=== PATIENT | female | born 1980 | race Two or more races ===

== ENCOUNTER 2016-12-23 07:59 | Emergency (ER) | payer MEDICAID ==
[~2016-12-23] VITALS: Ht 170.2 cm; Wt 74.8 kg
[2016-12-23 09:12] VITALS: BP 130/73
[2016-12-23] MEDS ORDERED: cefTRIAXone SOD 1,000 MG VL IM ONE (09:30)
[2016-12-23] MEDS ORDERED: methylPREDNISolone SOD SUCC 125 MG/2 ML VL IM ONE (09:30)
[2016-12-23] MEDS ORDERED: ALBUTEROL SULF 2.5 MG/0.5ML(0.5%) NEB SOLN NEB ONE (09:30)
[2016-12-23] MEDS ORDERED: IPRATROPIUM BROM 0.5 MG/2.5ML INH SOL NEB ONE (09:30)
== END 2016-12-23 09:47 | disposition home or self-care (01) ==
LOC: ER 07:59
DX: J20.9 Acute bronchitis, unspecified (principal)
CPT/HCPCS: 81025; 94640; 96372; 99284; J0696; J2930

== ENCOUNTER 2017-10-20 16:00 | Emergency (ER) | payer MEDICAID ==
[~2017-10-20] VITALS: Ht 170.2 cm; Wt 72.6 kg
[2017-10-20] MEDS ORDERED: IBUPROFEN 600 MG TAB PO ONE (16:10)
[2017-10-20 16:37] VITALS: BP 115/77
[2017-10-20] MEDS ORDERED: KETOROLAC TROMETH 60MG/2ML VIAL IM ONE (16:45)
== END 2017-10-20 17:25 | disposition home or self-care (01) ==
LOC: ER 16:00
DX: S93.401A Sprain of unspecified ligament of right ankle, initial encounter (principal); W18.39XA Other fall on same level, initial encounter; Y93.89 Activity, other specified; Y92.89 Other specified places as the place of occurrence of the external cause; Y99.8 Other external cause status
CPT/HCPCS: 73610; 96372; 99284; J1885

== ENCOUNTER 2018-09-24 21:02 | Emergency (ER) | payer MEDICAID ==
[~2018-09-24] VITALS: Ht 170.2 cm; Wt 72.6 kg
[2018-09-24 21:15] VITALS: BP 124/98
[2018-09-25] MEDS ORDERED: MEPERIDINE HCL (50 MG/ML) 1 ML VIAL IV ONE (00:30)
== END 2018-09-25 01:30 | disposition home or self-care (01) ==
LOC: ER 21:05
DX: S82.891A Other fracture of right lower leg, initial encounter for closed fracture (principal); X50.1XXA Overexertion from prolonged static or awkward postures, initial encounter; Y93.89 Activity, other specified; Y92.89 Other specified places as the place of occurrence of the external cause; Y99.8 Other external cause status
CPT/HCPCS: 29515; 73610; 96374; 99284; J2175

== ENCOUNTER 2020-03-15 17:34 | Emergency (ER) | payer MEDICAID ==
[~2020-03-15] VITALS: Ht 167.6 cm; Wt 76.2 kg
[2020-03-15 18:22] LABS: Basophils # (auto) 0.1 10 ^3/uL (0-0.2); Basophils % (auto) 0.8 % (0.0-2.0); Eosinophils # (auto) 0.1 10 ^3/uL (0-0.8); Eosinophils % (auto) 1.4 % (0.0-7.0); Hematocrit 44.6 % (36.0-46.0); Hemoglobin 15.4 g/dL (12.2-16.2); Lymphocytes # (auto) 3.1 10 ^3/uL (0.4-5.4); Lymphocytes % (auto) 41.3 % (10.0-50.0); Mean Corpuscular Hemoglobin 32.7 pg (28.0-32.0); Mean Corpuscular Hgb Conc. 34.6 g/dL (32.0-36.0); Mean Corpuscular Volume 94.4 fL (80.0-100.0); Monocytes # (auto) 0.5 10 ^3/uL (0-1.3); Monocytes % (auto) 6.4 % (0.0-12.0); Neutrophils # (auto) 3.8 10 ^3/uL (1.6-8.6); Neutrophils % (auto) 50.1 % (37.0-80.0); Platelet Count (auto) 314 10^3/uL (140-450); Red Blood Cells 4.72 10^6/uL (4.0-5.20); Red Cell Distribution Width 13.4 % (11.8-14.3); White Blood Cell 7.5 10^3/uL (4.4-10.8)
[2020-03-15 18:28] LABS: Urine Bacteria NONE SEEN /hpf (None Seen); Urine Blood 1+ /uL (Negative); Urine Mucus FEW (None Seen); Urine Specific Gravity 1.019 (1.001-1.035); Urine WBC 2 /hpf (0 - 5)
[2020-03-15] MEDS ORDERED: ONDANSETRON HCL 4 MG/2 ML VIAL IV ONE (18:30)
[2020-03-15] MEDS ORDERED: SODIUM CHLORIDE 0.9% 1,000 ML IV ONE (18:30)
[2020-03-15] MEDS ORDERED: MORPHINE SULFATE 4 MG/ML SYR/VIAL IV ONE (18:30)
[2020-03-15 18:45] LABS: Albumin 3.8 g/dL (3.4-5.0); Calcium 8.4 mg/dL (8.5-10.1); Potassium 3.3 mmol/L (3.5-5.1)
[2020-03-15 18:48] LABS: BUN/Creatinine Ratio 12.9; Bilirubin, Total 0.4 mg/dL (0.2-1.0); Total Protein 7.9 g/dL (6.4-8.2)
[2020-03-15 19:09] LABS: Amphetamine Screen, Urine POSITIVE (NEGATIVE); Barbiturate Scree,Urine NEGATIVE (NEGATIVE); Benzodiazephine Screen, Urine NEGATIVE (NEGATIVE); Cannabinoid Screen, Urine NEGATIVE (NEGATIVE); Cocaine Screen, Urine NEGATIVE (NEGATIVE); Opiate Scree,Urine NEGATIVE (NEGATIVE); Phencyclidine Screen, Urine NEGATIVE (NEGATIVE)
[2020-03-15 19:30] VITALS: BP 126/86
[2020-03-15] MEDS ORDERED: THIAMINE INJ 100 MG in SODIUM CHLORIDE 0.9% 1,000 ML IV ONE (20:30)
[2020-03-16] MEDS ORDERED: FOLIC ACID 1 MG, MULTIPLE VITAMIN 10 ML, MAGNESIUM SULF SDV 50% 8 MEQ, THIAMINE INJ 100... INJ SCH ×5 (12:00)
== END 2020-03-15 21:10 | disposition home or self-care (01) ==
LOC: ER 17:34
DX: N39.0 Urinary tract infection, site not specified (principal); F10.229 Alcohol dependence with intoxication, unspecified; K70.30 Alcoholic cirrhosis of liver without ascites; I10 Essential (primary) hypertension; Z90.49 Acquired absence of other specified parts of digestive tract; Y90.6 Blood alcohol level of 120-199 mg/100 ml
CPT/HCPCS: 36415; 74176; 80053; 80307; 80320; 81001; 83605; 84702; 85025; 96361; 96374; 96375; 99284; J2270; J2405; J3411; J7030

== ENCOUNTER 2020-11-24 11:17 | Emergency (ER) | payer MEDICAID ==
[~2020-11-24] VITALS: Ht 170.2 cm; Wt 73.5 kg
[2020-11-24 11:40] VITALS: BP 126/62
== END 2020-11-24 14:07 | disposition home or self-care (01) ==
LOC: ER 11:17
DX: J20.9 Acute bronchitis, unspecified (principal); Z20.828 Contact with and (suspected) exposure to other viral communicable diseases; Z90.49 Acquired absence of other specified parts of digestive tract
CPT/HCPCS: 36415; 71045; 87426

== ENCOUNTER 2021-05-31 19:17 | Inpatient (IN) | payer MEDICAID ==
[~2021-05-31] VITALS: Ht 162.6 cm; Wt 84.2 kg
[2021-05-31 20:33] LABS: Basophils # (auto) 0 10 ^3/uL (0-0.2); Basophils % (auto) 0.5 % (0.0-2.0); Eosinophils # (auto) 0.1 10 ^3/uL (0-0.8); Eosinophils % (auto) 0.9 % (0.0-7.0); Hemoglobin 15.4 g/dL (12.2-16.2); Lymphocytes # (auto) 2.8 10 ^3/uL (0.4-5.4); Lymphocytes % (auto) 42.6 % (10.0-50.0); Mean Corpuscular Hemoglobin 33.9 pg (28.0-32.0); Mean Corpuscular Hgb Conc. 35.9 g/dL (32.0-36.0); Mean Corpuscular Volume 94.6 fL (80.0-100.0); Monocytes # (auto) 0.5 10 ^3/uL (0-1.3); Monocytes % (auto) 7.1 % (0.0-12.0); Neutrophils # (auto) 3.2 10 ^3/uL (1.6-8.6); Neutrophils % (auto) 48.9 % (37.0-80.0); Nucleated Red Blood Cells % 0.1 %; Red Blood Cells 4.55 10^6/uL (4.0-5.20); Red Cell Distribution Width 12.6 % (11.8-14.3); White Blood Cell 6.5 10^3/uL (4.4-10.8)
[2021-05-31 20:52] LABS: Alanine Aminotransferase 90 U/L (13-56); Albumin 3.7 g/dL (3.4-5.0); Anion Gap 12 (5-15); Aspartate Aminotransferase 50 U/L (15-37); BUN/Creatinine Ratio 14.3; Blood Urea Nitrogen 10 mg/dL (7-18); Calcium 8.4 mg/dL (8.5-10.1); Carbon Dioxide 22 mmol/L (21-32); Chloride 108 mmol/L (98-107); GFR African American 119 mL/min; GFR Non-African American 99 mL/min; Glucose 96 mg/dL (74-106); Magnesium 2.1 mg/dL (1.6-2.6); Sodium 142 mmol/L (136-145)
[2021-05-31 20:55] LABS: Lactic Acid w/Reflex 2.6 mmol/L (0.4-2.0)
[2021-05-31 20:57] LABS: Alkaline Phosphatase 73 U/L (45-117); Bilirubin, Total 0.4 mg/dL (0.2-1.0); Total Protein 7.7 g/dL (6.4-8.2)
[2021-05-31 20:59] LABS: INR 0.99 (0.9-1.15); Partial Thromboplastin Time 25.4 sec (23.0-31.2)
[2021-05-31 21:04] LABS: Potassium 2.6 mmol/L (3.5-5.1)
[2021-05-31] MEDS ORDERED: POTASSIUM CHL 20 Meq TABLET PO ONE (21:30)
[2021-05-31] MEDS ORDERED: SODIUM CHLORIDE 0.9% 1,000 ML IV ONE (21:30)
[2021-05-31] MEDS: POTASSIUM CHL 20MEQ/100ML 100 ML IV SCH ×2 (21:55→23:55)
[2021-06-01 06:13] LABS: Urine Bacteria MANY /hpf (None Seen); Urine Blood Negative /uL (Negative); Urine Hyaline Cast FEW /lpf (0 - 2); Urine Mucus MANY (None Seen); Urine Specific Gravity 1.026 (1.001-1.035); Urine WBC 54 /hpf (0 - 5)
[2021-06-01 06:36] LABS: Amphetamine Screen, Urine POSITIVE (NEGATIVE); Barbiturate Scree,Urine NEGATIVE (NEGATIVE); Benzodiazephine Screen, Urine NEGATIVE (NEGATIVE); Cannabinoid Screen, Urine NEGATIVE (NEGATIVE); Cocaine Screen, Urine NEGATIVE (NEGATIVE); Opiate Scree,Urine NEGATIVE (NEGATIVE); Phencyclidine Screen, Urine NEGATIVE (NEGATIVE)
[2021-06-01] MEDS ORDERED: MORPHINE SULF INJ 2 MG/ML SYRINGE 1ML IV PRN (09:30)
[2021-06-01] MEDS ORDERED: NITROGLYCERIN 0.4 MG SL TAB SL PRN (09:30)
[2021-06-01] MEDS: cefTRIAXone 1GM/50ML D5W 50 ML IV SCH (09:57)
[2021-06-01] MEDS: ALPRAZolam 0.5 MG TAB PO PRN ×2 (09:57→17:55)
[2021-06-01] MEDS ORDERED: IOHEXOL 350 MG/ML 100ML IJ ONE (10:15)
[2021-06-01 10:23] LABS: BUN/Creatinine Ratio 21.4; Calcium 8.1 mg/dL (8.5-10.1); Potassium 3.8 mmol/L (3.5-5.1)
[2021-06-01] MEDS: CARVEDILOL 3.125 MG TAB PO SCH ×2 (11:09→21:07)
[2021-06-01] MEDS: GABAPENTIN 300 MG CAP PO SCH ×2 (11:10→21:07)
[2021-06-01] MEDS ORDERED: LORazepam 2MG/ML-1ML VIAL IV PRN (12:00)
[2021-06-01] MEDS ORDERED: TEMAZEPAM 15 MG CAP PO PRN (12:00)
[2021-06-01] MEDS ORDERED: DOCUSATE SOD 100 MG CAP PO PRN (12:00)
[2021-06-01] MEDS ORDERED: ONDANSETRON HCL 4 MG/2 ML VIAL IV PRN (12:00)
[2021-06-01] MEDS ORDERED: ACETAMINOPHEN 325 MG TAB PO PRN (12:00)
[2021-06-01] MEDS: SODIUM CHLORIDE 0.9% 1,000 ML IV SCH ×2 (12:47→20:20)
[2021-06-01 13:00] VITALS: BP 131/83
[2021-06-01] MEDS: FOLIC ACID 1 MG, MULTIPLE VITAMIN 10 ML, MAGNESIUM SULF SDV 50% 8 MEQ, THIAMINE INJ 100... INJ SCH ×5 (15:24)
[2021-06-01] MEDS: HYDROcodone-ACET 5/325MG TAB PO PRN ×2 (15:25→20:19)
[2021-06-01 17:00] VITALS: BP 127/65
[2021-06-01 20:33] VITALS: BP 121/69
[2021-06-01] MEDS: FAMOTIDINE 20 MG TAB PO SCH (21:08)
[2021-06-02] MEDS: HYDROcodone-ACET 5/325MG TAB PO PRN ×3 (03:12→21:23)
[2021-06-02 04:31] VITALS: BP 108/68
[2021-06-02] MEDS: SODIUM CHLORIDE 0.9% 1,000 ML IV SCH ×3 (04:40→21:23)
[2021-06-02 05:40] LABS: Basophils # (auto) 0 10 ^3/uL (0-0.2); Eosinophils # (auto) 0.1 10 ^3/uL (0-0.8); Hemoglobin 13.3 g/dL (12.2-16.2); Monocytes # (auto) 0.5 10 ^3/uL (0-1.3); Neutrophils # (auto) 3.1 10 ^3/uL (1.6-8.6); Red Cell Distribution Width 12.5 % (11.8-14.3)
[2021-06-02 05:49] LABS: Basophils % (auto) 0.5 % (0.0-2.0); Eosinophils % (auto) 1.9 % (0.0-7.0); Hematocrit 37.1 % (36.0-46.0); Lymphocytes # (auto) 2.8 10 ^3/uL (0.4-5.4); Lymphocytes % (auto) 43.3 % (10.0-50.0); Mean Corpuscular Hemoglobin 34.5 pg (28.0-32.0); Mean Corpuscular Hgb Conc. 35.8 g/dL (32.0-36.0); Mean Corpuscular Volume 96.4 fL (80.0-100.0); Monocytes % (auto) 7.3 % (0.0-12.0); Red Blood Cells 3.85 10^6/uL (4.0-5.20); White Blood Cell 6.5 10^3/uL (4.4-10.8)
[2021-06-02 05:57] LABS: Calcium 7.4 mg/dL (8.5-10.1); Potassium 3.5 mmol/L (3.5-5.1)
[2021-06-02 06:03] LABS: Albumin 2.8 g/dL (3.4-5.0); BUN/Creatinine Ratio 23.3; Bilirubin, Total 0.6 mg/dL (0.2-1.0); Total Protein 5.7 g/dL (6.4-8.2)
[2021-06-02 08:00] VITALS: BP 121/69
[2021-06-02 09:00] VITALS: BP 113/67
[2021-06-02] MEDS: cefTRIAXone 1GM/50ML D5W 50 ML IV SCH (09:13)
[2021-06-02] MEDS: GABAPENTIN 300 MG CAP PO SCH ×2 (09:13→22:28)
[2021-06-02] MEDS: ASPirin 325 MG TAB PO SCH (09:16)
[2021-06-02] MEDS: FAMOTIDINE 20 MG TAB PO SCH ×2 (09:17→22:00)
[2021-06-02] MEDS: CARVEDILOL 3.125 MG TAB PO SCH ×2 (09:17→22:29)
[2021-06-02] MEDS: FOLIC ACID 1 MG, MULTIPLE VITAMIN 10 ML, MAGNESIUM SULF SDV 50% 8 MEQ, THIAMINE INJ 100... INJ SCH ×5 (12:09)
[2021-06-02 13:00] VITALS: BP 111/70
[2021-06-02 17:00] VITALS: BP 153/74
[2021-06-02 22:00] VITALS: BP 130/77
[2021-06-03 04:56] VITALS: BP 119/79
[2021-06-03] MEDS: SODIUM CHLORIDE 0.9% 1,000 ML IV SCH ×3 (06:55→22:20)
[2021-06-03 08:00] VITALS: BP 98/65
[2021-06-03 09:02] VITALS: BP 127/76
[2021-06-03] MEDS: GABAPENTIN 300 MG CAP PO SCH ×2 (09:43→22:34)
[2021-06-03] MEDS: ASPirin 325 MG TAB PO SCH (09:43)
[2021-06-03] MEDS: cefTRIAXone 1GM/50ML D5W 50 ML IV SCH (09:43)
[2021-06-03] MEDS: FAMOTIDINE 20 MG TAB PO SCH ×2 (09:44→22:34)
[2021-06-03] MEDS: CARVEDILOL 3.125 MG TAB PO SCH ×2 (09:44→22:34)
[2021-06-03 13:00] VITALS: BP 121/87
[2021-06-03] MEDS: FOLIC ACID 1 MG, MULTIPLE VITAMIN 10 ML, MAGNESIUM SULF SDV 50% 8 MEQ, THIAMINE INJ 100... INJ SCH ×5 (13:54)
[2021-06-03] MEDS: HYDROcodone-ACET 5/325MG TAB PO PRN (13:56)
[2021-06-03 17:15] VITALS: BP 110/86
[2021-06-03 22:00] VITALS: BP 132/81
[2021-06-03] MEDS: ALPRAZolam 0.5 MG TAB PO PRN (22:49)
[2021-06-04 05:01] VITALS: BP 120/77
[2021-06-04] MEDS: SODIUM CHLORIDE 0.9% 1,000 ML IV SCH (06:40)
[2021-06-04 08:00] VITALS: BP 132/81
[2021-06-04 08:34] VITALS: BP 122/77
[2021-06-04] MEDS: cefTRIAXone 1GM/50ML D5W 50 ML IV SCH (09:51)
[2021-06-04] MEDS: GABAPENTIN 300 MG CAP PO SCH (10:18)
[2021-06-04] MEDS: ASPirin 325 MG TAB PO SCH (10:18)
[2021-06-04] MEDS: FAMOTIDINE 20 MG TAB PO SCH (10:19)
[2021-06-04] MEDS: CARVEDILOL 3.125 MG TAB PO SCH (10:19)
[2021-06-04 11:15] VITALS: BP 122/77
[2021-06-04] MEDS: FOLIC ACID 1 MG, MULTIPLE VITAMIN 10 ML, MAGNESIUM SULF SDV 50% 8 MEQ, THIAMINE INJ 100... INJ SCH ×5 (12:00)
== END 2021-06-04 12:43 | disposition home or self-care (01) | DRG 816 ==
LOC: EDBD 19:17 → ER 19:19 → TELE 06-01 09:25 → TELE-EAST 06-01 11:25
PROVIDERS: ADMIT Nurse Practitioner; ATTEND Nurse Practitioner
DX: T51.0X1A Toxic effect of ethanol, accidental (unintentional), initial encounter (principal); G92 Toxic encephalopathy; G45.9 Transient cerebral ischemic attack, unspecified; E87.2 Acidosis; E87.6 Hypokalemia; N39.0 Urinary tract infection, site not specified; F15.10 Other stimulant abuse, uncomplicated; Z90.49 Acquired absence of other specified parts of digestive tract; Z20.822 Contact with and (suspected) exposure to COVID-19; Y90.6 Blood alcohol level of 120-199 mg/100 ml
CPT/HCPCS: 36415; 70450; 70551; 71045; 71275; 72125; 80048; 80053; 80307; 80320; 81001; 81025; 82962; 83605; 83735; 84484; 85025; 85049; 85379; 85610; 85730; 87040; 87426; 93005; 93306; 93886; 95819; 96361; 96365; G0378; J0696; J3480

== ENCOUNTER 2021-06-06 16:09 | Emergency (ER) | payer MEDICAID ==
[~2021-06-06] VITALS: Ht 170.2 cm; Wt 76.7 kg
[2021-06-06 16:27] VITALS: BP 116/84
[2021-06-06 17:27] LABS: Basophils # (auto) 0 10 ^3/uL (0-0.2); Basophils % (auto) 0.5 % (0.0-2.0); Eosinophils # (auto) 0.1 10 ^3/uL (0-0.8); Eosinophils % (auto) 1.3 % (0.0-7.0); Hematocrit 46.1 % (36.0-46.0); Hemoglobin 16.1 g/dL (12.2-16.2); Lymphocytes # (auto) 1.6 10 ^3/uL (0.4-5.4); Lymphocytes % (auto) 20.4 % (10.0-50.0); Mean Corpuscular Hemoglobin 33.6 pg (28.0-32.0); Mean Corpuscular Hgb Conc. 34.9 g/dL (32.0-36.0); Mean Corpuscular Volume 96.4 fL (80.0-100.0); Monocytes # (auto) 0.6 10 ^3/uL (0-1.3); Monocytes % (auto) 7.7 % (0.0-12.0); Neutrophils # (auto) 5.6 10 ^3/uL (1.6-8.6); Neutrophils % (auto) 70.1 % (37.0-80.0); Nucleated Red Blood Cells % 0.2 %; Platelet Count (auto) 345 10^3/uL (140-450); Red Blood Cells 4.79 10^6/uL (4.0-5.20)
[2021-06-06 17:59] LABS: Albumin 3.5 g/dL (3.4-5.0); BUN/Creatinine Ratio 11.7; Calcium 9.1 mg/dL (8.5-10.1); Magnesium 2.1 mg/dL (1.6-2.6); Potassium 3.7 mmol/L (3.5-5.1)
[2021-06-06 18:02] LABS: Bilirubin, Total 0.3 mg/dL (0.2-1.0); Total Protein 7.9 g/dL (6.4-8.2)
== END 2021-06-06 17:33 | disposition left against medical advice (07) ==
LOC: ER 16:09
DX: R56.9 Unspecified convulsions (principal); Z87.442 Personal history of urinary calculi; Z86.73 Personal history of transient ischemic attack (TIA), and cerebral infarction without residual deficits; Z90.49 Acquired absence of other specified parts of digestive tract; Z87.891 Personal history of nicotine dependence
CPT/HCPCS: 36415; 80053; 83735; 85025; 85049; 93005; 99291; J1953; J7060

== ENCOUNTER 2022-05-31 10:45 | Emergency (ER) | payer MEDICAID ==
[~2022-05-31] VITALS: Ht 170.2 cm; Wt 81.6 kg
[2022-05-31 12:19] LABS: Urine Bacteria NONE SEEN /hpf (None Seen); Urine Blood 3+ /uL (Negative); Urine WBC 1596 /hpf (0 - 5); Urine WBC Clumps PRESENT /hpf (None Seen)
[2022-05-31 12:20] LABS: Urine Specific Gravity 1.023 (1.001-1.035)
[2022-05-31 12:23] LABS: Basophils # (auto) 0.1 10 ^3/uL (0-0.2); Basophils % (auto) 0.8 % (0.0-2.0); Eosinophils # (auto) 0.1 10 ^3/uL (0-0.8); Eosinophils % (auto) 1.4 % (0.0-7.0); Hemoglobin 14.5 g/dL (12.2-16.2); Lymphocytes # (auto) 1.9 10 ^3/uL (0.4-5.4); Mean Corpuscular Hemoglobin 29.7 pg (28.0-32.0); Mean Corpuscular Hgb Conc. 32.4 g/dL (32.0-36.0); Mean Corpuscular Volume 91.7 fL (80.0-100.0); Monocytes # (auto) 0.5 10 ^3/uL (0-1.3); Neutrophils # (auto) 4.2 10 ^3/uL (1.6-8.6); Neutrophils % (auto) 61.8 % (37.0-80.0); Nucleated Red Blood Cells % 0.1 %; Red Cell Distribution Width 13.4 % (11.8-14.3); White Blood Cell 6.8 10^3/uL (4.4-10.8)
[2022-05-31 12:41] LABS: Albumin 3.9 g/dL (3.4-5.0); Calcium 8.7 mg/dL (8.5-10.1); Potassium 3.7 mmol/L (3.5-5.1)
[2022-05-31 12:47] LABS: BUN/Creatinine Ratio 14.5; Bilirubin, Total 0.7 mg/dL (0.2-1.0); Total Protein 7.9 g/dL (6.4-8.2)
[2022-05-31] MEDS ORDERED: CEPH-322 PO (13:14)
[2022-05-31 14:23] VITALS: BP 102/71
== END 2022-05-31 14:24 | disposition home or self-care (01) ==
LOC: ER 10:45
DX: N93.8 Other specified abnormal uterine and vaginal bleeding (principal); N30.00 Acute cystitis without hematuria; Z90.49 Acquired absence of other specified parts of digestive tract
CPT/HCPCS: 36415; 80053; 81001; 81025; 84702; 85025; 86850; 86900; 86901

== ENCOUNTER 2022-07-31 08:05 | Emergency (ER) | payer MEDICAID ==
[~2022-07-31] VITALS: Ht 170.2 cm; Wt 88.9 kg
[~2022-07-31 08:05] MED LIST: CEPH-322 PO
[2022-07-31 09:30] VITALS: BP 128/86
[2022-07-31] MEDS ORDERED: ACET-1158 PO (09:50)
[2022-07-31] MEDS ORDERED: AMOX-277 PO (09:50)
[2022-07-31] MEDS: ACETAMINOPHEN/CODEINE#3 (300/30mg) TAB PO ONE (10:04)
[2022-07-31] MEDS: ONDANSETRON ODT 4 MG TAB PO ONE (10:04)
[2022-07-31] MEDS: cefTRIAXone SOD 1,000 MG VL IM ONE (10:04)
== END 2022-07-31 11:46 | disposition home or self-care (01) ==
LOC: ER 08:05
DX: G44.209 Tension-type headache, unspecified, not intractable (principal); K04.7 Periapical abscess without sinus; Z90.49 Acquired absence of other specified parts of digestive tract; Z87.442 Personal history of urinary calculi; Z86.73 Personal history of transient ischemic attack (TIA), and cerebral infarction without residual deficits
CPT/HCPCS: 70450; 96372; 99284; J0696; Q0162

== ENCOUNTER 2023-01-30 22:06 | Emergency (ER) | payer MEDICAID ==
[~2023-01-30] VITALS: Ht 170.2 cm; Wt 84.5 kg
[~2023-01-30 22:06] MED LIST changes: +ACET-1158 PO; +AMOX-277 PO
[2023-01-31] MEDS ORDERED: HYDROcodone-ACET 10/325MG TAB PO ONE (01:00)
[2023-01-31] MEDS ORDERED: ONDANSETRON ODT 4 MG TAB PO ONE (01:00)
[2023-01-31 01:28] VITALS: BP 132/76
== END 2023-01-31 01:30 | disposition home or self-care (01) ==
LOC: ER 22:06
DX: M54.59 Other low back pain (principal); I10 Essential (primary) hypertension; F17.210 Nicotine dependence, cigarettes, uncomplicated; F41.9 Anxiety disorder, unspecified; Z86.73 Personal history of transient ischemic attack (TIA), and cerebral infarction without residual deficits; Z79.899 Other long term (current) drug therapy
CPT/HCPCS: 72100; 99283; Q0162

== ENCOUNTER 2023-02-02 03:56 | Emergency (ER) | payer MEDICAID ==
[~2023-02-02] VITALS: Ht 170.2 cm; Wt 88.4 kg
[2023-02-02] MEDS ORDERED: ONDANSETRON ODT 4 MG TAB PO ONE (05:00)
[2023-02-02 05:22] LABS: Basophils # (auto) 0 10 ^3/uL (0-0.2); Basophils % (auto) 0.1 % (0.0-2.0); Eosinophils # (auto) 0 10 ^3/uL (0-0.8); Eosinophils % (auto) 0.4 % (0.0-7.0); Hematocrit 48.3 % (36.0-46.0); Hemoglobin 16.2 g/dL (12.2-16.2); Lymphocytes # (auto) 0.5 10 ^3/uL (0.4-5.4); Lymphocytes % (auto) 4.3 % (10.0-50.0); Mean Corpuscular Hemoglobin 30.9 pg (28.0-32.0); Mean Corpuscular Hgb Conc. 33.6 g/dL (32.0-36.0); Mean Corpuscular Volume 91.9 fL (80.0-100.0); Monocytes # (auto) 0.2 10 ^3/uL (0-1.3); Monocytes % (auto) 2.1 % (0.0-12.0); Neutrophils # (auto) 10.6 10 ^3/uL (1.6-8.6); Neutrophils % (auto) 93.1 % (37.0-80.0); Red Blood Cells 5.25 10^6/uL (4.0-5.20); Red Cell Distribution Width 13.5 % (11.8-14.3); White Blood Cell 11.4 10^3/uL (4.4-10.8)
[2023-02-02 05:37] LABS: Albumin 4.3 g/dL (3.4-5.0); BUN/Creatinine Ratio 23.8; Calcium 9.3 mg/dL (8.5-10.1); Potassium 3.9 mmol/L (3.5-5.1)
[2023-02-02 05:40] LABS: Total Protein 8.8 g/dL (6.4-8.2)
[2023-02-02] MEDS ORDERED: MORPHINE SULFATE 4 MG/ML SYR/VIAL IV ONE (07:15)
[2023-02-02] MEDS ORDERED: cefTRIAXone 1GM/50ML D5W 50 ML IV ONE (07:15)
[2023-02-02] MEDS ORDERED: SODIUM CHLORIDE 0.9% 1,000 ML IV ONE ×2 (07:15)
[2023-02-02] MEDS ORDERED: metroNIDAZOLE 500MG/100ML 100 ML IV ONE (07:15)
[2023-02-02] MEDS ORDERED: ONDANSETRON HCL 4 MG/2 ML VIAL IV ONE (07:15)
[2023-02-02 07:55] LABS: Urine Amorphous Crystal MANY /hpf (None Seen); Urine Bacteria NONE SEEN /hpf (None Seen); Urine Blood Negative /uL (Negative); Urine Mucus MODERATE (None Seen); Urine WBC 1 /hpf (0 - 5)
[2023-02-02] MEDS ORDERED: ONDA-144 PO (09:41)
[2023-02-02] MEDS ORDERED: METR500T PO (09:41)
[2023-02-02 12:39] VITALS: BP 107/66
== END 2023-02-02 09:41 | disposition home or self-care (01) ==
LOC: ER 03:56
DX: K52.9 Noninfective gastroenteritis and colitis, unspecified (principal); I10 Essential (primary) hypertension; F17.210 Nicotine dependence, cigarettes, uncomplicated; Z90.49 Acquired absence of other specified parts of digestive tract; Z86.73 Personal history of transient ischemic attack (TIA), and cerebral infarction without residual deficits; Z88.1 Allergy status to other antibiotic agents
CPT/HCPCS: 36415; 74176; 80053; 81001; 83690; 84484; 85025; 93005; 96365; 96367; 96375; 99285; J0696; J2270; J2405; J3490; J7030; Q0162

== ENCOUNTER 2024-06-25 04:00 | Emergency (ER) | payer MEDICAID ==
[~2024-06-25] VITALS: Ht 170.2 cm; Wt 74.5 kg
[~2024-06-25 04:00] MED LIST changes: -ACET-1158 PO; +ACET500T58 PO; -AMOX-277 PO; +AMOX875T4 PO; -CEPH-322 PO; +CEPH250C PO; +METR500T PO; +ONDA-144 PO
[2024-06-25] MEDS ORDERED: CEPH500C PO (04:21)
[2024-06-25] MEDS ORDERED: IBUP-1456 PO (04:22)
[2024-06-25] MEDS: TETANUS-DIPTH-ACEL PERTUSSIS 0.5ML SYR Tdap IM ONE (06:11)
[2024-06-25 06:13] VITALS: BP 98/59; PULSE 97; RESP 18; TEMP 97.8; O2SAT 100
[2024-06-25] MEDS: IBUPROFEN 800 MG TAB PO ONE (06:16)
== END 2024-06-25 06:19 | disposition home or self-care (01) ==
LOC: ER 04:00
DX: S60.511A Abrasion of right hand, initial encounter (principal); I48.91 Unspecified atrial fibrillation; F41.9 Anxiety disorder, unspecified; I10 Essential (primary) hypertension; R56.9 Unspecified convulsions; F17.210 Nicotine dependence, cigarettes, uncomplicated; Z86.73 Personal history of transient ischemic attack (TIA), and cerebral infarction without residual deficits; Z90.49 Acquired absence of other specified parts of digestive tract; Z79.899 Other long term (current) drug therapy; X50.9XXA Other and unspecified overexertion or strenuous movements or postures, initial encounter; Y93.89 Activity, other specified; Y92.89 Other specified places as the place of occurrence of the external cause; Y99.8 Other external cause status
CPT/HCPCS: 90471; 90715

== ENCOUNTER 2025-09-11 21:34 | Emergency (ER) | payer SELFPAY ==
[~2025-09-11] VITALS: Ht 170.2 cm; Wt 77.3 kg
[~2025-09-11 21:34] MED LIST changes: +CEPH500C PO; +IBUP-1456 PO
[2025-09-11 21:35] VITALS: BP 125/82; PULSE 128; RESP 18; TEMP 98.4; O2SAT 97
[2025-09-11 23:00] LABS: COVID19 ANTIGEN SOFIA FIA NEGATIVE (NEGATIVE)
== END 2025-09-11 23:55 | disposition left against medical advice (07) ==
LOC: ER 21:34
DX: R68.89 Other general symptoms and signs (principal); Z53.21 Procedure and treatment not carried out due to patient leaving prior to being seen by health care provider; Z79.899 Other long term (current) drug therapy; Z20.822 Contact with and (suspected) exposure to COVID-19
CPT/HCPCS: 36415; 87426; 87804